=== PATIENT | female | born 1980 | race Asian ===

== ENCOUNTER → 2017-09-01 | Outpatient (CLI) | payer OTHER ==
[2017-09-01 16:39] LABS: ESTRADIOL 64.8 PG/ML
== END ==
LOC: M WUC 14:08
DX: N97.9 Female infertility, unspecified (principal)
CPT/HCPCS: 84443

== ENCOUNTER → 2017-09-05 | Outpatient (CLI) | payer OTHER ==
[2017-09-05 10:58] LABS: HCG, SERUM QUANTITATIVE < 1.0 MIU/ML
[2017-09-05 11:26] LABS: PROGESTERONE 3.1 NG/ML
== END ==
LOC: M WUC 09:34
DX: Z32.00 Encounter for pregnancy test, result unknown (principal)

== ENCOUNTER → 2017-10-13 | Outpatient (CLI) | payer OTHER ==
[2017-10-13 10:53] LABS: HCG, SERUM QUANTITATIVE 106 MIU/ML
[2017-10-13 11:06] LABS: PROGESTERONE 29.3 NG/ML
== END ==
LOC: M WUC 09:15
DX: Z32.00 Encounter for pregnancy test, result unknown (principal)

== ENCOUNTER → 2017-10-15 | Outpatient (CLI) | payer OTHER ==
[2017-10-15 12:50] LABS: HCG, SERUM QUANTITATIVE 283 MIU/ML
[2017-10-16 06:04] LABS: PROGESTERONE 39.6 NG/ML
== END ==
LOC: M WUC 09:21
DX: Z32.01 Encounter for pregnancy test, result positive (principal)

== ENCOUNTER 2018-06-27 17:21 | Inpatient (IN) | payer OTHER ==
[2018-06-27] VITALS (23 sets, daily range): BP systolic 108–184; BP diastolic 56–99
[~2018-06-27] VITALS: Ht 157.5 cm; Wt 89.5 kg
--- NOTE | 2018-06-27 17:55 | HPEPDOC ---
Obstetrical History & Physical General Date of Admission Jun 27, 2018 at 17:21 History of Present Illness 37 yo at 40+5 weeks gestation by IVF dating (FRANTZ [id number]) presents for an IOL today for AMA and late term . Ms. Pfeiffer reports feeling well and has no complaints. She denies any vaginal bleeding, leakage of fluid. She endorses intermittent contractions and reports normal movement. 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 Past Medical History Medical History AMA Surgical History: [place] teeth Family History Significant Family History: No pertinent family hx Social History Marital Status: Psychosocial History: No pertinent psych hx * Smoker: non-smoker Alcohol: Denies Drugs: denies Imunizations Tdap status: current Influenza Status: current Allergies Coded Allergies: No Known Allergies (Unverified , 06/27/18) Medications Scheduled Chondroitin Sulfate A (Chondroitin Sulfate) 150 Mg Cap, Unknown Dose PO DAILY Coenzyme Q10 (Coq10) 400 Mg Cap, 400 MG PO DAILY Cyanocobalamin (B12) 1,000 Mcg Tab, 1,000 MCG PO DAILY Fish Oil (Fish Oil) 1,000 Mg Cap, 1 CAP PO DAILY Fluticasone Propionate (Flonase Allergy Relief) 50 Mcg/Act Spr, 2 SPRAY NARES DAILY Multivitamins/ ( 27-0.8 mg) 1 Tab Tab, 1 TAB PO DAILY Physical Examination Physical Examination GENERAL: Alert and oriented times three. ABDOMEN: Gravid and non-tender to touch. FETUS: Is vertex (VTX) by sterile vaginal examination. EXTREMITIES: No edema. Laboratory Data [facility] Laboratory Tests 2 06/27/18 17:33: Serology Scanned Report Hepatitis B Testing Urine Culture: No Growth Pertinent Laboratoy Data Blood Type: A+ RBC Antibody Screen: Negative HIV: Negative Hepatitis B: Negative Hepatitis C: Unknown Rapid Plasma Reagin: Nonreactive Rubella: Immune Varicella: Immune Chlamydia/Gonorrhea: Negative Group B Streptococcus: Negative Quad Screen Test: Negative (No quad screen, but had low risk cff DNA) Cystic Fibrosis: Negative Glucose Tolerance Test: 84 Anatomy Ultrasound Placenta Location: Posterior Normal Anatomy: Yes (Velamentous cord insertion) Placenta Previa: No Steroid Therapy Steroid Therapy: No Vaginal Examination Dilation: 3 cm Effacement: 80% Station: -2 Cervical Consistency: Soft Cervical Position: Middle Presentation: Cephalic presentation Assessment Heart Rate (FHR): 135 Variability: Moderate Accelerations: Positive Decelerations: None Tocometer Contractions: Yes Frequency: irregular Strength: palpated as mild Assessment/Plan Assessment 37 yo at 40+5 weeks here today for IOL for AMA and late term . Plan Admit and orient. Apply IV fluids. Diet: Clears. Group B Streptococcus (GBS) negative. Cervix favorable; will proceed with pitocin for IOL. Anticipate normal spontaneous delivery (). C-S as appropriate. Chrsitopher Banuelos, DO Labor and Delivery Counseling /VAVD/FAVD counseling: Description: Deliver your baby through the vagina with possible assistance of forceps or vacuum device if needed for maternal or indications. Forceps and vacuum are devices that can assist with vaginal delivery when normal pushing efforts cannot achieve delivery on their own or when delivery is needed in an emergency for baby's well-being. Medications may be required to induce or augment (help) your labor in order to achieve a vaginal delivery. An episiotomy may be required to help your baby to delivery vaginally. You may also require repair of any lacerations or tears of your vagina or vulva that are caused by delivery. In some cases, emergencies can occur that require an emergency section delivery so quickly that there may not be enough time to stop and complete consent forms for section. Understand that if this occurs, your providers will discuss the need for a section with you before they proceed with surgery. section is the delivery of your baby through an incision in your abdomen. In some situations, section may be safer to mom and baby than continuing labor and is only performed when clinically indicated. Risks of vaginal delivery include but are not limited to: Bleeding, infection, injury to the vagina, pelvic structures, injury to baby, damage to the uterus, reactions to anesthesia, uterine rupture, risk of hysterectomy for life threatening bleeding, or . Medications used to induce or augment labor may increase your risk for infection, uterine tachysystole, uterine rupture, heart rate abnormalities, need for emergency delivery or possible hysterectomy, and hemorrhage. Additional risks for use of forceps and vacuum include: increased risk of perineal and vaginal lacerations, risk of urinary or bowel incontinence, increased risk of injury to baby with bruising, scratches, hematomas on the head, or intracranial bleeding. Ms. Pfeiffer verbalizes understanding of these risks and elects to proceed. She also consents to blood products for transfusion should they become necessary. All patient and questions answered. DO MEE Jackson CHRISTOPHER J. DO Jun 27, 2018 17:55
[2018-06-27] MEDS ORDERED: PRENTAB9 PO (17:59)
[2018-06-27] MEDS ORDERED: FISH1000 PO (17:59)
[2018-06-27] MEDS ORDERED: COEN400C2 PO (17:59)
[2018-06-27] MEDS ORDERED: B121000T PO (17:59)
[2018-06-27] MEDS ORDERED: CHON150C PO (17:59)
[2018-06-27] MEDS ORDERED: FLON1SPR NARES (18:00)
[2018-06-27] MEDS ORDERED: LR 1,000 ML IV SCH (18:14)
[2018-06-27] MEDS ORDERED: OXYTOCIN DRIP 30 UNITS in APPROPRIATE DILUENT 1 EA IV SCH (18:15)
[2018-06-27] MEDS ORDERED: LACTATED RINGER'S 1000 ML IV STA (18:15)
[2018-06-27 18:59] LABS: BASO % 0.4 % (0.0-1.0); EOS # 0.1 10^3/uL (0.0-0.50); EOS % 1.4 % (0.0-3.0); HEMATOCRIT 39.5 % (36.0-47.0); HEMOGLOBIN 13.3 g/dl (12.0-15.5); LYMPH # 1.8 10^3/uL (1.5-4.5); LYMPH % 20.8 % (24.0-44.0); MEAN CORPUSCULAR HEMOGLOBIN 28.7 pg (27.0-33.0); MEAN CORPUSCULAR HGB CONC 33.7 g/dl (32.0-36.5); MEAN CORPUSCULAR VOLUME 85.3 fl (80.0-96.0); MONO # 0.7 10^3/uL (0.0-0.8); MONO % 7.9 % (0.0-5.0); NEUTROPHILS # 5.8 10^3/uL (1.8-7.7); NEUTROPHILS % 69.1 % (36.0-66.0); PLATELET COUNT, AUTOMATED 189 10^3/uL (150-450); RED BLOOD COUNT 4.63 10^6/uL (4.00-5.40); WHITE BLOOD COUNT 8.5 10^3/uL (4.0-10.0)
[2018-06-27] MEDS ORDERED: FENTANYL 2MCG/ML ROPIVACAINE 0.2% IN 0.9% NACL 100ML IVBAG As Ordered ONE (22:28)
[2018-06-27] MEDS ORDERED: ONDANSETRON 4MG/2ML VIAL (J2405) As Ordered ONE (23:56)
[2018-06-28] VITALS (29 sets, daily range): BP systolic 101–138; BP diastolic 53–87
[2018-06-28] MEDS ORDERED: REFRIGERATOR IV KEYS XX PRN (00:30)
[2018-06-28] MEDS ORDERED: diphenhydrAMINE INJ 50MG/ML VIAL (J1200) IV PRN (00:30)
[2018-06-28] MEDS ORDERED: LACTATED RINGER'S 1000 ML IV PRN (00:30)
[2018-06-28] MEDS ORDERED: FENTANYL/ROPIVACAINE/NACL BAG 100 ML EPIDURAL SCH (00:30)
[2018-06-28] MEDS ORDERED: ePHEDrine SULFATE 25 MG/5 ML(5MG/ML) SYRINGE IV PRN (00:30)
[2018-06-28] MEDS ORDERED: EPIDURAL/PCA KEYS XX PRN (00:30)
[2018-06-28] MEDS ORDERED: ONDANSETRON 4MG/2ML VIAL (J2405) IV PRN ×2 (00:30→08:45)
[2018-06-28] MEDS ORDERED: NALOXONE INJ 0.4 MG/1 ML VIAL (J2310) IV PRN (00:30)
[2018-06-28] MEDS ORDERED: EPIDURAL COMMENT XX SCH (00:30)
--- NOTE | 2018-06-28 02:40 | IPNPDOC ---
Text Note Date of Service The patient was seen on 06/28/18. NOTE SROM, clear fluid noted by RN at ~2240. Ms. Pfeiffer is now comfortable, epidural is in place. Cervix: 5/C/0. FHR: BL 120, moderate variability (though brief instances of minimal variability), +accels, no decels, overall reassuring tracing. Contractions regular. Ms. Pfeiffer is progressing well. Pitocin at 8mU. Continue to titrate to effect. Safe to proceed. DO Vin VS,Yuriy I+O VS, Yuriy, I+O Laboratory Tests 06/27/18 18:52 Red Blood Count 4.63, Mean Corpuscular Volume 85.3, Mean Corpuscular Hemoglobin 28.7, Mean Corpuscular Hemoglobin Concent 33.7, Red Cell Distribution Width 13.7, Neutrophils (%) (Auto) 69.1 H, Lymphocytes (%) (Auto) 20.8 L, Monocytes (%) (Auto) 7.9 H, Eosinophils (%) (Auto) 1.4, Basophils (%) (Auto) 0.4, Neutrophils # (Auto) 5.8, Lymphocytes # (Auto) 1.8, Monocytes # (Auto) 0.7, Eosi nophils # (Auto) 0.1, Basophils # (Auto) 0.0 Vital Signs Date Time Temp Pulse Resp B/P (MAP) Pulse Ox O2 Delivery O2 Flow Rate FiO2 06/27/18 19:04 98.3 69 20 130/77 (94) CATHY CABAN DO Jun 28, 2018 02:40
--- NOTE | 2018-06-28 06:02 | IPNPDOC ---
Text Note Date of Service The patient was seen on 06/28/18. NOTE Patient feeling increased pressure. Cervix: AL/C/+1. Small amount of cervix on maternal left side. FHR: BL 115, moderate variability, +accels, no do decels, Cat I tracing. Ctx regular. Ms. Pfeiffer is progressing well. Anticipate beginning of second stage in next hour. Safe to proceed. DO Vin VS,Yuriy, I+O VS, Yuriy, I+O Laboratory Tests 06/27/18 18:52 Red Blood Count 4.63, Mean Corpuscular Volume 85.3, Mean Corpuscular Hemoglobin 28.7, Mean Corpuscular Hemoglobin Concent 33.7, Red Cell Distribution Width 13. 7, Neutrophils (%) (Auto) 69.1 H, Lymphocytes (%) (Auto) 20.8 L, Monocytes (%) (Auto) 7.9 H, Eosinophils (%) (Auto) 1.4, Basophils (%) (Auto) 0.4, Neutrophils # (Auto) 5.8, Lymphocytes # (Auto) 1.8, Monocytes # (Auto) 0.7, Eosinophils # (Auto) 0.1, Basophils # (Auto) 0.0 Vital Signs Date Time Temp Pulse Resp B/P (MAP) Pulse Ox O2 Delivery O2 Flow Rate FiO2 06/28/18 05:36 50 18 101/57 (72) 06/28/18 04:05 97.9 I&O- Last 24 Hours up to 6 AM 06/28/18 05:59 Output Total 1100 ml Balance -1100 ml CATHY CABAN DO Jun 28, 2018 06:02
[2018-06-28] MEDS ORDERED: RHOGAM 300 MCG (1500 IU) INJ (J2790) IM SCH (08:45)
[2018-06-28] MEDS ORDERED: DIBUCAINE 1% OINTMENT 30GM TOP PRN (08:45)
[2018-06-28] MEDS ORDERED: MEASLES,MUMPS,RUBELLA VACCINE INJ (MMR-II) (90707) SC SCH (08:45)
[2018-06-28] MEDS ORDERED: IBUPROFEN 800 MG TAB PO PRN (08:45)
[2018-06-28] MEDS ORDERED: ACETAMINOPHEN 500 MG TAB PO PRN (08:45)
[2018-06-28] MEDS ORDERED: DOCUSATE SODIUM 100 MG CAP PO PRN (08:45)
--- NOTE | 2018-06-28 08:47 | DNPDOC ---
[facility] Delivery Note Delivery Note DATE OF DELIVERY: [id number] at 0804 PREDELIVERY DIAGNOSIS: 40+6 week IOL for AMA POST DELIVERY DIAGNOSIS: Delivered. PROCEDURE: Spontaneous vaginal delivery GENERAL HANDLING SUPERVISOR: Dr. Banuelos ANESTHESIA: Epidural. ESTIMATED BLOOD LOSS: 400 mL. FINDINGS: pending weight female , Score 9/9, velamentous cord ins ertion DELIVERY SUMMARY: Presented to room for assessment. Cervix C/C/+2. The bed was broken down and she was prepped for delivery. With excellent pushing effort her infant delivered. Presentation was DAVID with restitution to ROT. Left anterior shoulder delivered with gentle guidance followed easily by the remainder of the body. The infant was dried and stimulated on the field. The cried vigorously and was placed on the maternal abdomen. I then cut the three vessel umbilical cord. I then performed cord blood collection per the patient's desire for cord blood banking. 3rd stage was completed with gentle traction on the cord and it was productive of an intact placenta. A velamentous cord insertion was noted. The uterine fundus was firmed with massage and pitocin was administered per protocol. The cervix, vagina, perineum, and labia were inspected. A midline 2nd degree laceration was noted. This was repaired with 3-0 vicryl suture in the usual fashion. Excellent cosmesis and hemostasis res ulted. The fundus was palpated again and was firm. Sponge, needle, and instrument counts were correct X2. Mother stable when I left the room. DO MEE Jackson CHRISTOPHER J. DO Jun 28, 2018 08:47
[2018-06-28] MEDS ORDERED: OXYTOCIN DRIP 30 UNITS in APPROPRIATE DILUENT 1 EA IV SCH (09:00)
[2018-06-28] MEDS: PRENATAL VITAMINS CHEWABLE TABLET PO SCH (09:00)
[2018-06-29 06:00] VITALS: BP 110/67
--- NOTE | 2018-06-29 07:47 | DS.PDOC ---
Discharge Summary General Date of Admission Jun 27, 2018 at 17:21 Date of Discharge Jun 29, 2018 Discharge Summary HOSPITAL COURSE: Ms. Pfeiffer is a 38 yo G1 now P1 who underwent an uncomplicated on [id number] after being admitted for an IOL for late term . her course has been unremarkable. She is ambulating, voiding, tolerating a regular diet, and has minimal pain and lochia. DISCHARGE MEDICATIONS: Please see below. ALLERGIES: Please see below. PHYSICAL EXAMINATION ON DISCHARGE: VITAL SIGNS: Please see below. GENERAL: AAOX3, laying in bed, NAD ABDOMINAL EXAMINATION: Fundus firm at U-2, no fundal tenderness EXTREMITIES: No edema PSYCHIATRIC EXAMINATION: Affect appropriate LABORATORY DATA: Please see below. ACTIVITY: Pelvic rest for 6 weeks. DIET: Regular DISCHARGE PLAN: Discharge home on 29Jun2018 DISPOSITION: Discharge home. DISCHARGE INSTRUCTIONS: 1. Pelvic rest for 6 weeks. 2. appointment in 6-8 weeks ITEMS TO FOLLOWUP ON ON OUTPATIENT: 1. appointment in 6-8 weeks. DISCHARGE CONDITION: Stable. TIME SPENT ON DISCHARGE: Greater than 20 minutes. Cathy Banuelos DO Vital Signs/I&Os Vital Signs Date Time Temp Pulse Resp B/P (MAP) Pulse Ox O2 Delivery O2 Flow Rate FiO2 06/29/18 06:00 97.8 63 18 110/67 (81) I&O- Last 24 Hours up to 6 AM 06/29/18 06:00 Intake Total 719 ml Output Total 1050 ml Balance -331 ml Discharge Medications Scheduled Chondroitin Sulfate A (Chondroitin Sulfate) 150 Mg Cap, Unknown Dose PO DAILY, (Reported) Coenzyme Q10 (Coq10) 400 Mg Cap, 400 MG PO DAILY, (Reported) Cyanocobalamin (B12) 1,000 Mcg Tab, 1,000 MCG PO DAILY, (Reported) Fish Oil (Fish Oil) 1,000 Mg Cap, 1 CAP PO DAILY, (Reported) Fluticasone Propionate (Flonase Allergy Relief) 50 Mcg/Act Spr, 2 SPRAY NARES DAILY, (Reported) Multivitamins/ ( 27-0.8 mg) 1 Tab Tab, 1 TAB PO DAILY, (Reported) Allergies Coded Allergies: No Known Allergies (Unverified , 06/27/18) CATHY BANUELOS DO Jun 29, 2018 07:47
[2018-06-29] MEDS: PRENATAL VITAMINS CHEWABLE TABLET PO SCH (08:14)
[2018-06-29] MEDS ORDERED: IBUP-1114 PO (09:35)
[2018-06-29] MEDS ORDERED: PRENTAB9 PO (09:35)
[2018-06-29] MEDS ORDERED: COLA100C5 PO (09:35)
== END 2018-06-29 12:20 | disposition home or self-care (01) | DRG 807 ==
LOC: M LDI 17:21 → M OBS 06-28 10:45
PROVIDERS: ADMIT Obstetrics & Gynecology; ATTEND Obstetrics & Gynecology
PROC: 3E033VJ Introduction of Other Hormone into Peripheral Vein, Percutaneous Approach (ICD-10-PCS; 2018-06-27)
PROC: 10E0XZZ Delivery of Products of Conception, External Approach (ICD-10-PCS; principal; 2018-06-28)
PROC: 0KQM0ZZ Repair Perineum Muscle, Open Approach (ICD-10-PCS; 2018-06-28)
DX: O48.0 Post-term pregnancy (principal); Z37.0 Single live birth; Z3A.40 40 weeks gestation of pregnancy; O69.89X0 Labor and delivery complicated by other cord complications, not applicable or unspecified; O70.1 Second degree perineal laceration during delivery